=== PATIENT | female | born 1945 | race Caucasian/White ===

== ENCOUNTER 2016-04-03 13:04 | Day surgery (SDC) | payer MEDICARE, OTHER ==
[~2016-04-03 13:04] MED LIST: MOTR200T PO; PERC5TAB12 PO; SENN8.8S7 PO
[2016-04-03 13:27] VITALS: BP 137/73; PULSE 78; RESP 20; TEMP 98.2; O2SAT 94
--- NOTE | 2016-04-05 09:33 | RADRPT ---
EXAM DATE/TIME: 04/03/2016 14:19 [facility] COMPARISON: No previous studies available for comparison. INDICATIONS : Peritoneal cancer, patient has swelling around right clavicle. MEDICAL HISTORY : Primary Peritoneal Cancer Osteoarthrisits SURGICAL HISTORY : Left knee Right hip Hysterectomy Colonoscopy ENCOUNTER: Initial ACUITY: > 1 year PAIN SCORE: 0/10 FLUORO TIME: 0.30 minutes CONTRAST: 10 cc Omnipaque (iohexol) 350 MEDICATION(S): 1.) 500 units Heparin PROCEDURE : 1. Access of [id number]. 2. Port patency injection. The risks, benefits and alternatives to the procedure were explained and verbal and written consent w as obtained. The patient was placed supine. The port was prepped in sterile fashion. Full sterile t echnique was used, including cap, mask, sterile gloves and gown, and a large sterile sheet. Hand hyg iene and 2% chlorhexidine prep was utilized per protocol for cutaneous antisepsis with appropriate dr y time for site. The previously placed port was accessed and positive contrast was injected for evaluation. Injection demonstrates the port to be intact and widely patent CONCLUSION: Normal exam. Right port is intact without leak to explain the right clavicular swelling. Isidoro Christianson MD on April 05, 2016 at 9:30 Board Certified Radiologist. This report was verified electronically.
== END 2016-04-03 14:35 | disposition home or self-care (01) ==
LOC: HROP 13:04 → HRIP 13:06 → HROP 14:35
PROVIDERS: ATTEND Obstetrics & Gynecology Gynecologic Oncology
DX: T82.898A Other specified complication of vascular prosthetic devices, implants and grafts, initial encounter (principal); C48.2 Malignant neoplasm of peritoneum, unspecified
CPT/HCPCS: 36598; J1642

== ENCOUNTER 2016-05-30 17:08 | Emergency (ER) | payer MEDICARE, OTHER ==
[~2016-05-30] VITALS: Ht 175.3 cm; Wt 73.0 kg
[2016-05-30 17:09] VITALS: BP 146/84; PULSE 90; RESP 18; TEMP 98.9; O2SAT 96
[2016-05-30 18:01] VITALS: BP 151/74; PULSE 84; RESP 18; O2SAT 99
[2016-05-30] MEDS ORDERED: ONDANSETRON HCL 4 MG/2 ML VIAL IV PUSH ONE (18:15)
[2016-05-30] MEDS ORDERED: MORPHINE SULFATE 4 MG/ML INJ IV PUSH ONE (18:15)
[2016-05-30 18:34] VITALS: BP 141/72; PULSE 80; RESP 18; O2SAT 97
[2016-05-30 18:56] LABS: BLOOD, URINE NEG (NEG); COMMENT (UR) CULTURE INDICATED; CULTURE IF INDICATED CULTURE INDICATED; GLUCOSE,URINE NEG (NEG); KETONE, URINE TRACE mg/dL (NEG); NITRITE,URINE NEG (NEG); PH, URINE 7.5 (5.0-8.5); SQUAMOUS EPITHELIAL CELL URINE <1 /hpf (0-5); TRANSITIONAL EPI CELLS, URINE <1 /hpf; URINE COLOR LIGHT-YELLOW (YELLW/STRAW)
[2016-05-30 18:57] LABS: AUTOMATED NEUTROPHIL # 4.8 TH/MM3 (1.8-7.7); BASOPHIL % 0.3 % (0.0-2.0); EOSINOPHIL % 0.4 % (0.0-4.0); HEMO FLAGS DIFF FINAL; LYMPH % 16.8 % (9.0-44.0); LYMPHOCYTE # 1.1 TH/MM3 (1.0-4.8); MEAN CELL VOLUME 97.3 FL (80.0-100.0); MEAN CORPUSCULAR HEMOGLOBIN 32.4 PG (27.0-34.0); MEAN CORPUSCULAR HGB CONC 33.3 % (32.0-36.0); MONO % 10.4 % (0.0-8.0); NEUT % 72.1 % (16.0-70.0); PLATELET COUNT 264 TH/MM3 (150-450); RED BLOOD COUNT 3.49 MIL/MM3 (4.00-5.30); RED CELL DISTRIBUTION WIDTH 13.4 % (11.6-17.2); WHITE BLOOD COUNT 6.7 TH/MM3 (4.0-11.0)
--- NOTE | 2016-05-30 18:59 | PD ---
HPI Chief Complaint: Abdominal Pain Time Seen by Provider: 18:53 Travel History International Travel<30 days: No Contact w/Intl Traveler<30days: No Traveled to known affect area: No History of Present Illness HPI 70-year-old female that presents to the ED for evaluation of abdominal pain. Per patient she's had this for the past week. Per patient she has a history of peritoneal cancer that was removed by [facility]. Per patient she had chemotherapy as well and she follows with Dr. Mar and oncologist in the area. Per patient she has been in remission and she actually follows with her doctor here who did the PET scan earlier this year it was negative and they did found by her tumor marker CA-125 was elevated. She went to see her surgeon in [place] this week for a recheck and she was complaining of some abdominal pain at that time and the surgeon of the time believes that this was more related to scar tissue to anything else. She was reassured at the time but she continued to have the pain and today she apparently went to get her recheck of her CA-125 was highly elevated. Patient got concerned that her cancer might be coming back so she came here to get evaluated. Per patient her pain is severe more today. She states that her pain is 6 out of 10. She denies any nausea or vomiting. No bowel movement issues. No urinary issues. She is a not had any surgeries since 2 years ago. Denies any other medical problems. PFSH Past Medical History Cancer: Yes (PERITONEAL CA) Cardiovascular Problems: No Diabetes: No Endocrine: No Gastrointestinal Disorders: No Genitourinary: No Hepatitis: No Hiatal Hernia: No Hypertension: No Immune Disorder: No Musculoskeletal: No Neurologic: No Psychiatric: No Reproductive: No Respiratory: No Thyroid Disease: No Past Surgical History Gynecologic Surgery: Yes (TOTAL HYSTERECTOMY 07/2014) Hysterectomy: Yes Joint Replacement: Yes (RIGHT HIP) Social History Alcohol Use: No Tobacco Use: No Substance Use: No Allergies-Medications (Allergen,Severity, Reaction): Coded Allergies: Celebrex (Verified Allergy, Unknown, 05/30/16) Reported Meds & Prescriptions Reported Meds & Active Scripts Active No Active Prescriptions or Reported Medications Review of Systems Except as stated in HPI: all other systems reviewed are Neg Physical Exam Narrative GENERAL: SKIN: Warm and dry. HEAD: Atraumatic. Normocephalic. EYES: Pupils equal and round. No scleral icterus. No injection or drainage. ENT: No nasal bleeding or discharge. Mucous membranes pink and moist. Tongue is midline. No uvula deviation. NECK: Trachea midline. No JVD. CARDIOVASCULAR: Regular rate and rhythm. No murmurs, S3, S4. RESPIRATORY: No accessory muscle use. Clear to auscultation. Breath sounds equal bilaterally. GASTROINTESTINAL: Abdomen soft, tender to palpation especially in the lower quadrants on the left than right, nondistended. Hepatic and splenic margins not palpable. MUSCULOSKELETAL: Extremities without clubbing, cyanosis, or edema. No obvious deformities. NEUROLOGICAL: Awake and alert. No obvious cranial nerve deficits. Motor grossly within normal limits. Five out of 5 muscle strength in the arms and legs. Normal speech. PSYCHIATRIC: Appropriate mood and affect; insight and judgment normal. Data Data Last Documented VS Vital Signs Date Time Temp Pulse Resp B/P Pulse Ox O2 Delivery O2 Flow Rate FiO2 05/30/16 20:03 17 05/30/16 20:01 82 145/71 98 Room Air 05/30/16 17:09 98.9 Orders Complete Blood Count With Diff (05/30/16 18:03) Comprehensive Metabolic Panel (05/30/16 18:03) Prothrombin Time / Inr (Pt) (05/30/16 18:03) Act Partial Throm Time (Ptt) (05/30/16 18:03) Lipase (05/30/16 18:03) Urinalysis - C+S If Indicated (05/30/16 18:03) Ct Abd/Pel W Iv Contrast(Rout) (05/30/16 18:03) Iv Access Insert/Monitor (05/30/16 18:03) Morphine Inj (Morphine Inj) (05/30/16 18:15) Ondansetron Inj (Zofran Inj) (05/30/16 18:15) Urine Culture (05/30/16 18:20) Iohexol 350 Inj (Omnipaque 350 Inj) (05/30/16 20:22) Labs Laboratory Tests Test 05/30/16 18:20 White Blood Count 6.7 TH/MM3 Red Blood Count 3.49 MIL/MM3 Hemoglobin 11.3 GM/DL Hematocrit 34.0 % Mean Corpuscular Volume 97.3 FL Mean Corpuscular Hemoglobin 32.4 PG Mean Corpuscular Hemoglobin 33.3 % Concent Red Cell Distribution Width 13.4 % Platelet Count 264 TH/MM3 Mean Platelet Volume 7.7 FL Neutrophils (%) (Auto) 72.1 % Lymphocytes (%) (Auto) 16.8 % Monocytes (%) (Auto) 10.4 % Eosinophils (%) (Auto) 0.4 % Basophils (%) (Auto) 0.3 % Neutrophils # (Auto) 4.8 TH/MM3 Lymphocytes # (Auto) 1.1 TH/MM3 Monocytes # (Auto) 0.7 TH/MM3 Eosinophils # (Auto) 0.0 TH/MM3 Basophils # (Auto) 0.0 TH/MM3 CBC Comment DIFF FINAL Differential Comment Prothrombin Time 11.2 SEC Prothromb Time International 1.0 RATIO Ratio Activated Partial 25.1 SEC Thromboplast Time Urine Color LIGHT-YELLOW Urine Turbidity CLEAR Urine pH 7.5 Urine Specific [place] 1.004 Urine Protein NEG mg/dL Urine Glucose (UA) NEG mg/dL Urine Ketones TRACE mg/dL Urine Occult Blood NEG Urine Nitrite NEG Urine Bilirubin NEG Urine Urobilinogen LESS THAN 2.0 MG/DL Urine Leukocyte Esterase MOD Urine RBC LESS THAN 1 /hpf Urine WBC 10 /hpf Urine Squamous Epithelial <1 /hpf Cells Urine Transitional Epithelial <1 /hpf Cells Microscopic Urinalysis Comment CULTURE INDICATED Sodium Level 140 MEQ/L Potassium Level 3.8 MEQ/L Chloride Level 104 MEQ/L Carbon Dioxide Level 28.5 MEQ/L Anion Gap 8 MEQ/L Blood Urea Nitrogen 13 MG/DL Creatinine 0.71 MG/DL Estimat Glomerular Filtration 82 ML/MIN Rate Random Glucose 95 MG/DL Calcium Level 9.0 MG/DL Total Bilirubin 0.4 MG/DL Aspartate Amino Transf 34 U/L (AST/SGOT) Alanine Aminotransferase 28 U/L (ALT/SGPT) Alkaline Phosphatase 67 U/L Total Protein 7.2 GM/DL Albumin 3.7 GM/DL Lipase 58 U/L [facility] Medical Decision Making Medical Screen Exam Complete: Yes Emergency Medical Condition: Yes Medical Record Reviewed: Yes Interpretation(s) CBC & BMP Diagram 05/30/16 18:20 Last Impressions Abdomen/Pelvis CT 05/30/16 1804 Signed Impressions: Service Date/Time: May 19:39 - CONCLUSION: Ascites and signs of peritoneal carcinomatosis have not changed, however retroperitoneal adenopathy has progressed since 2016 characteristic of worsening metastatic disease. There are also lesions in the liver some of them in the right hepatic lobe are suspicious for metastatic disease with a stable left hepatic hemangioma. Preston Poole MD LFTS and lipase WNL UA negative Differential Diagnosis Tumor versus acute abdomen versus abdominal pain versus diverticulitis versus muscle strain versus UTI versus cyst Narrative Course 70-year-old female that presents to the ED for evaluation of lower abdominal pain and history of cancer. Patient was properly examined and was found to have signs and symptoms of unclear etiology. He does appear to have some pain with touch in the abdomen. Patient has a history of peritoneal cancer. At This time I recommend imaging and labs. Patient agreement with this. Labs and imaging showed metastatic disease. Use were given to the patient. I spoke personally with Dr. Zaldivar. Per the phone who is patient's oncologist hearing [place] and agrees with discharge and follow-up in his office tomorrow or Friday. Patient will be given prescription for Lortab to help with her pain. Patient agrees with plan. Patient will be sent home with reports of all lab work and imaging performed here. She was told that she needs to follow closely with oncologist for further assessment and treatment of the cancer. See ED for worsening symptoms. Diagnosis Primary Impression: Metastatic disease Patient Instructions: Narcotic given in the ED, General Instructions Additional Instructions: Take medications as prescribed. Follow-up with [facility]. Tell the office tomorrow morning that you were seen at the ED and we spoke with Dr Mar who wants to see you. See ED for any worsening symptoms. Do not drink or drive while taking pain medication. Apply ice or heat as needed for pain Med/Other Pt SpecificInfo: Prescription(s) given Scripts Hydrocodone-Acetaminophen (Lortab)5-325 Mg Tab1 Tab PO Q6H PRN (PAIN) #20 TAB Prov:Chapo Gomez MD 05/30/16 Disposition: 01 DISCHARGE HOME Condition: Stable Himanshu Garcia May 30, 2016 18:59
[2016-05-30 19:07] LABS: APTT (PATIENT) 25.1 SEC (24.3-30.1); PROTHROMBIN TIME - PATIENT 11.2 SEC (9.8-11.6)
[2016-05-30 19:13] LABS: BLOOD UREA NITROGEN 13 MG/DL (7-18); GLOMERULAR FILTRATION RATE 82 ML/MIN (>89)
[2016-05-30 19:14] LABS: ANION GAP 8 MEQ/L (5-15); AST (GOT) 34 U/L (15-37); BICARBONATE 28.5 MEQ/L (21.0-32.0); CHLORIDE 104 MEQ/L (98-107); POTASSIUM 3.8 MEQ/L (3.5-5.1); SODIUM (NA) 140 MEQ/L (136-145)
[2016-05-30 19:17] LABS: ALKALINE PHOSPHATASE 67 U/L (45-117); ALT (GPT) 28 U/L (10-53); TOTAL BILIRUBIN ADULT 0.4 MG/DL (0.2-1.0)
[2016-05-30 20:01] VITALS: BP 145/71; PULSE 82; RESP 18; O2SAT 98
[2016-05-30] MEDS ORDERED: IOHEXOL 350 MG/ML 10 ML VIAL (for RAD DIAG) IV ONE (20:22)
--- NOTE | 2016-05-30 20:31 | RADRPT ---
EXAM DATE/TIME: 05/30/2016 19:39 [facility] COMPARISON: CT ABDOMEN & PELVIS W CONTRAST, September 23, 2015, 11:21. INDICATIONS : Abdomen pain with nausea,hx of peritoneal cancer,elavated CA-125 IV CONTRAST: 70 cc Omnipaque 350 (iohexol) IV ORAL CONTRAST: No oral contrast ingested. RADIATION DOSE: 9.96 CTDIvol (mGy) MEDICAL HISTORY : Peritoneal cancer SURGICAL HISTORY : Hysterectomy. peritoneal cancer removed ENCOUNTER: Initial ACUITY: 3 days PAIN SCALE: 3/10 LOCATION: Abdomen TECHNIQUE: Volumetric scanning of the abdomen and pelvis was performed. Using automated exposure control and adjustment of the mA and/or kV according to patient size, radiation dose was kept as low as reasonably achievable to obtain optimal diagnostic quality images. FINDINGS: CT Abdomen: There are 4 low attenuating lesions within the right hepatic lobe the largest one measure s almost a centimeter in size not significantly changed. There is a hemangioma in the left hepatic lo be measuring 2.3 cm and not changed. The spleen, pancreas, kidneys, adrenals are unremarkable. There is a small subcentimeter lymph node in the right cardiophrenic angle. Multiple pathological lymph nod es are present the largest one measures 2.4 cm in size (it measured 1.3 cm previously) extending from the upper abdomen down into bilateral iliac chain. There is no evidence for any appreciable free flu id, or bowel obstruction. There is slight ascites throughout the abdomen and pelvis extending from t he perisplenic space and into the pelvic region with slight peritoneal thickening and haziness of the mesentery characteristic of with peritoneal carcinomatosis. CT pelvis: There is no evidence for mass, abscess formation, or any significant adenopathy within the pelvis. There are degenerative changes and possible bulging discs in the lower lumbosacral spine not adequately characterized in addition to scoliosis. CONCLUSION: Ascites and signs of peritoneal carcinomatosis have not changed, however retroperiton eal adenopathy has progressed since 2016 characteristic of worsening metastatic disease. There are al so lesions in the liver some of them in the right hepatic lobe are suspicious for metastatic disease with a stable left hepatic hemangioma. Preston Poole MD on May 30, 2016 at 20:22 Board Certified Radiologist. This report was verified electronically.
[2016-05-30] MEDS ORDERED: HYDR-3533 PO (20:54)
== END 2016-05-30 22:05 | disposition home or self-care (01) ==
LOC: NEPC 17:08
DX: C48.2 Malignant neoplasm of peritoneum, unspecified (principal); C78.7 Secondary malignant neoplasm of liver and intrahepatic bile duct; Z79.899 Other long term (current) drug therapy
CPT/HCPCS: 36591; 74177; 80053; 81001; 83690; 85025; 85610; 85730; 86304; 87086; 96374; 96375; 99284; J1642; J2270; J2405; Q9967